=== PATIENT | female | born 1970 | race Caucasian/White ===

== ENCOUNTER 2020-12-08 11:02 | Emergency (ER) | payer SELFPAY ==
[~2020-12-08] VITALS: Ht 160 cm; Wt 91.6 kg
[2020-12-08 11:20] VITALS: BP 133/84
--- NOTE | 2020-12-08 11:24 | NUR ---
Patient is 50 y/o female c/o productive cough, fever, joint pain for 1 week. Patient reports testing positive for Covid 12/07/20. Patient denies CP, SOB, dysuria, or blood in stool. Patient is non vaccinated against Covid 19. Allergies: NKA Med hx: none
[2020-12-08] MEDS ORDERED: KETOROLAC 30 MG/ML VIAL IVP ONE (11:45)
[2020-12-08] MEDS ORDERED: NACL 0.9% 1,000 ML IV ONE (11:45)
--- NOTE | 2020-12-08 12:45 | NUR ---
Dr. Nielsen at the bedside evaluating patient.
[2020-12-08] MEDS ORDERED: IBUP-2213 PO (13:30)
[2020-12-08] MEDS ORDERED: PRED20TA5 PO (13:30)
[2020-12-08 14:05] VITALS: BP 122/88
--- NOTE | 2020-12-08 14:05 | NUR ---
Patient discharged with v/s stable. Written and verbal after care instructions given and explained. Patient alert, oriented and verbalized understanding of instructions. Ambulatory with steady gait. All questions addressed prior to discharge. ID band removed. Patient advised to follow up with PMD. Rx of ibuprofen, prednisone given. Patient educated on indication of medication including possible reaction and side effects. Opportunity to ask questions provided and answered.
--- NOTE | 2020-12-09 20:42 | NUR ---
LATE NOTE- 0.9% NS BOLUS DISCONTINUED AT 1310
== END 2020-12-08 14:05 | disposition home or self-care (01) ==
LOC: MED 11:02
DX: U07.1 COVID-19 (principal); R05 Cough; M54.5 Low back pain; Z98.890 Other specified postprocedural states
CPT/HCPCS: 99284; J7030; J1885